=== PATIENT | male | born 1990 | race Asian ===

== ENCOUNTER → 2018-03-15 15:14 | Outpatient (CLI) | payer OTHER, SELFPAY ==
--- NOTE | 2018-03-15 15:24 | RAD_ITS ---
STUDY: X-RAY - LUMBAR SPINE REASON FOR EXAM: Male, 28 years old. Back pain TECHNIQUE: 5 view(s) of the lumbar spine were obtained. COMPARISON: None FINDINGS: There is no evidence of fracture or dislocation in the lumbar spine. The vertebral body heights and disc spaces are well-maintained. There are no significant degenerative changes. RAD/L/S Spine Min 4 Views IMPRESSION: No fracture or dislocation in the lumbar spine. Electronically Signed: Jefry Baez, at 18:13 EDT Tel , Service support ,
== END ==
PROVIDERS: Family Provider Family Medicine; PCP Family Medicine; Visit Provider Family Medicine
DX: S39.012A Strain of muscle, fascia and tendon of lower back, initial encounter (principal)
CPT/HCPCS: 72110

== ENCOUNTER → 2019-07-13 | Outpatient (CLI) | payer OTHER, SELFPAY ==
--- NOTE | 2019-07-13 10:09 | RAD_ITS ---
STUDY: X-RAY CHEST REASON FOR EXAM: Male, 29 years old. Increasing shortness of breath and chest congestion. Asthma. TECHNIQUE: PA and lateral views of the chest. COMPARISON: None. FINDINGS: Hyperinflation. The lungs are clear. There is no demonstrated pleural abnormality. Normal size heart. Normal mediastinum and maria. Normal visualized pulmonary arteries. Normal visualized aortic arch and descending thoracic aorta. Normal visualized thoracic spine. Normal visualized ribs, clavicles, and shoulders. There is no demonstrated abnormality of the visualized soft tissue structures of the upper abdomen. RAD/Chest PA and Lateral IMPRESSION: Hyperinflation. Electronically Signed: John Panda, at 15:47 EDT , Service support ,
== END | disposition home or self-care (01) ==
LOC: MTRAD 10:08
PROVIDERS: Family Provider Family Medicine; PCP Family Medicine; Referring Provider Family Medicine; Visit Provider Family Medicine
DX: J45.901 Unspecified asthma with (acute) exacerbation (principal)
CPT/HCPCS: 71046

== ENCOUNTER 2019-09-15 14:54 | Emergency (ER) | payer OTHER, SELFPAY ==
[2019-09-15 14:55] VITALS: BP 151/110; PULSE 95; RESP 16; TEMP 37.5; O2SAT 96; BMI 27.2
--- NOTE | 2019-09-15 15:22 | CT_ITS ---
STUDY: CT BRAIN WITHOUT CONTRAST REASON FOR EXAM: Male, 29 years old. FONTAINE all over/NECK PAIN/NAUSEA X 2 DAYS. Low grade fever. Pt shielded RADIATION DOSAGE (If Supplied By Facility): CTDIvol = ( 44.99 ) mGy, DLP = ( 829.85 ) mGycm TECHNIQUE: Transaxial CT imaging of the brain was performed without administration of intravenous contrast material. Individualized dose optimization techniques were used for this CT. COMPARISON: No relevant priors. FINDINGS: Normal soft tissue structures. Normal calvarium. Normal size ventricles and extra-axial spaces for the patient''s age. Normal white matter tracts of the cerebral hemispheres. Normal basal ganglia and thalami. Normal brainstem. Normal cerebellum. There is no intracranial hemorrhage. There are no findings of an acute ischemic infarction. Normal visualized paranasal sinuses. CT/Brain/Head without Contrast IMPRESSION: Normal unenhanced CT scan of the brain. Electronically Signed: Compa Hilton MD at 16:01 EST Tel , Service support ,
--- NOTE | 2019-09-15 15:23 | ED.VIS.HA ---
History of Present Illness Chief Complaint: Headache Informant: Patient Onset: Days - 3 Context: Gradual Timing: Continuous Quality: Dull Location: global Current Severity: Severe Maximum Severity: Severe Worsened by: nothing Relieved by: nothing Associated Symptoms: Fever, Nausea. Negative for: Vomiting, Sore Throat, Sinus Pressure, Numbness, Tingling, Preceding Aura, Visual Changes, Blurred Vision, Photophobia, Visual Loss Injury: - - no injury Narrative: Healthy 29-year-old male has had gradual onset of severe global headache and severe pain throughout the back of his neck. The pain is worst at the base of his head, but radiates down into his trapezius musculature. There are no neurologic symptoms. He states the pain is worse when he extends at the neck, lifting his chin up, and is not bad to bend his chin down to his chest or to turn in both directions fully. States his low back is sore but he always has soreness in his low back. Denies any peripheral neurologic symptoms, confusion, vision changes, or photophobia. He has had fevers up to 102. He has had no cold symptoms, earache, sore throat, was having a lot of nausea but no vomiting. States he had some abdominal pain a couple days ago but that went away and now his abdomen feels fine. He has had decreased oral intake. Prior similar symptoms: No Recent Illness/Hospitalization: No Past Medical History - Allergies and Home Meds Allergies/Adverse Reactions: Allergies No Known Allergies Allergy (Verified 09/15/19 14:54) Primary Care Physician: Barry Purvis MD [Primary Care Provider] - Lives: Alone Smoking Status: Never smoker Drugs: None Review of Systems General: Reports: Fever, Sweats. Denies: Chills Eyes: Denies: Visual changes - bilaterally, Diplopia ENT: Denies: Bilateral ear pain, Rhinorrhea, Sore throat Cardiovascular: Denies: Chest pain, Palpitations Respiratory: Denies: Dyspnea, Cough, Dyspnea on exertion Gastrointestinal: Reports: Nausea - And decreased appetite/oral intake. Denies: Abdominal pain, Vomiting, Diarrhea, Melena, Hematochezia Genitourinary: Denies: Dysuria, Hematuria, Frequency Musculoskeletal: Reports: Neck pain, Back pain. Denies: Swelling, Extremity Pain Skin: Denies: Rash, Wounds Neurological: Reports: Headache. Denies: Weakness, Parasthesia, Numbness Physical Exam Vital Signs/Narrative: Vital Signs Temp Pulse Resp BP Pulse Ox 09/15/19 14:55 99.5 F H 95 16 151/110 H 96 Inital Vital Signs reviewed: Yes General: Well nourished, Well developed, - - Well-appearing, lights on without photophobia, no acute distress Head: NC, AT Eyes: Perrl, EOMI ENT: Moist mucous membranes, No rhinorrhea, TM's clear - And no mastoid tenderness. Negative for: Sinus tenderness Neck: Supple, No Lymphadenopathy, Nontender - Actually, palpation throughout the posterior paraspinal musculature helps his pain, No Meningismus - Full range of motion throughout, - - Negative Kernig and Brudzinski signs Cardiovascular: Regular rate, Regular rhythm, No murmurs Respiratory: No distress, CTA bilaterally, Chest nontender Abdomen: Soft, Nontender, Nondistended, Normal bowel sounds. Negative for: Hepatomegaly, Splenomegaly Back: Nontender, Normal Inspection. Negative for: CVA tenderness, Spinal tenderness Extremities: Nontender, No edema, - - Negative straight leg raises bilaterally while sitting Skin: Normal color, No rash Neuro: Alert, Oriented x3, Cranial nerves II-XII grossly intact, Normal Strength, Normal Sensation, Normal DTR, Normal Gait Psychological: Normal affect, Normal Mood Diagnostic/Tx/Re-eval Impressions Brain CT 09/15/19 15:22 IMPRESSION: Normal unenhanced CT scan of the brain. Electronically Signed: Compa Hilton MD at 16:01 EST Tel , Service support , 09/15/19 15:22 Brain/Head without Contrast [CT] Stat Laboratory Results 09/15/19 09/15/19 15:14 15:14 WBC 3.8 L RBC 5.49 Hgb 16.5 Hct 47.4 MCV 86.3 MCH 30.1 MCHC 34.8 RDW Std Deviation 35.8 RDW Coeff of Luis Carlos 11.3 L Plt Count 155 MPV 9.5 Immature Gran % (Auto) 0.300 Neut % (Auto) 63.5 Lymph % (Auto) 23.4 Faulkner % (Auto) 12.0 H Eos % (Auto) 0.5 Baso % (Auto) 0.3 Absolute Neuts (auto) 2.4 Absolute Lymphs (auto) 0.90 Nucleated RBC % 0 Sodium 139 Potassium 3.8 Chloride 105 Carbon Dioxide 31.0 Anion Gap 3 L BUN 13 Creatinine 1.20 Estim Creat Clear Calc 93.78 Est GFR (MDRD) Af Amer 92 Est GFR (MDRD) Non-Af 76 BUN/Creatinine Ratio 10.8 Glucose 97 Calcium 8.7 - Medical Decision Making Patient has white blood count slightly below the normal range. There is a prominence of monocytes which is of undetermined significance. He has not had any travel outside of the area or country recently or exposure with malaria. CT scan was negative, there is no sign of sphenoidal sinusitis there anything else that explains his symptoms. This is reassuring. After Toradol and Reglan, he feels much better including his neck pain. I reassure him, I cannot justify doing a spinal tap at this time given the risks and benefits, as I do not think he has meningitis. Most likely a viral syndrome given the prevalence of viruses in the community at this time. We discussed reasons to return to the hospital, supportive care otherwise advised and follow-up if persistent. He is comfortable with that plan. ED Disposition - Plan for ED Patient: Disposition: Home or Assisted Living Diagnosis: Cephalgia, Viral syndrome Instructions: HEADACHE, Unspecified, VIRAL SYNDROME (Adult) Referrals: Barry Purvis MD [Primary Care Provider] - 3-5 Days if not improving
[2019-09-15 15:25] VITALS: BP 169/97
[2019-09-15 15:30] LABS: Absolute Neutrophil Count 2.4 X10^3/uL (2.0-7.7); Basophil# 0.01 X10^3/uL; Basophil% 0.3 % (0-1); Eosinophil# 0.02 X10^3/uL; Eosinophils% 0.5 % (0-5); Hematocrit 47.4 % (40-54); Hemoglobin 16.5 g/dL (13.0-16.5); Lymphocyte % 23.4 % (19-41); Mean Corp Hgb Conc 34.8 g/dL (32-36); Mean Corpuscular Hgb 30.1 pg (27.0-32.0); Mean Corpuscular Volume 86.3 fL (80-94); Mean Platelet Vol. 9.5 fl (6.2-12.0); Monocyte# 0.46 X10^3/uL; NRBC Flagged by Analyzer 0 % (0-5); Neutrophil # 2.44 X10^3/uL (2.7-7.7); Neutrophil % 63.5 % (47-70); Platelet Count 155 K/mm3 (150-450); RBC Distribution Width CV 11.3 % (11.6-14.6); RBC Distribution Width SD 35.8 fl (35.1-43.9); Red Blood Count 5.49 M/mm3 (4.6-6.2); White Blood Count 3.8 K/mm3 (4.4-11.0)
[2019-09-15] MEDS: Ketorolac 30 MG/ML Syringe IV (15:33)
[2019-09-15] MEDS: Metoclopramide 10 MG/2 ML Vial IV (15:33)
[2019-09-15 15:45] LABS: BUN 13 mg/dL (7-18); BUN/Creat Ratio 10.8 RATIO (10-20); Calcium,Total 8.7 mg/dL (8.5-10.1); Chloride 105 mmol/L (98-107); EST Glomerular Filtration Rate 76 mL/min (>60); Est Glom Filt Rate - Afr Amer 92 mL/min (>60); Estimated Creatinine Clearance 93.78 ml/min; Glucose 97 mg/dL (74-106); Potassium 3.8 mmol/L (3.5-5.1); Sodium Level 139 mmol/L (136-145)
[2019-09-15 15:46] LABS: Anion Gap 3 (5-15)
[2019-09-15 16:20] VITALS: BP 142/89; RESP 16
--- NOTE | 2019-09-15 16:22 | ED.RN ---
REVIEWED D/C INSTRUCTIONS, FOLLOW UP CARE, AND S/S THAT WOULD WARRANT A RETURN TO THE ED WITH PT. PT VERBALIZED AN UNDERSTANDING AND DENIES FURTHER QUESTIONS FOR THIS RN. PT SKIN WARM/DRY, RESP EVEN AND UNLABORED, PT A&O X 3, NO DISTRESS NOTED. PT AMBULATED OUT OF ED, GAIT STEADY.
== END 2019-09-15 16:23 | disposition home or self-care (01) ==
PROVIDERS: Emergency Provider Emergency Medicine; Family Provider Family Medicine; PCP Family Medicine
DX: R51 Headache (principal); B34.9 Viral infection, unspecified; R50.9 Fever, unspecified; R11.0 Nausea; M54.2 Cervicalgia; M54.5 Low back pain
CPT/HCPCS: 70450; 80048; 85025; 96361; 96374; 96375; 99283; J7030; A4216

== ENCOUNTER → 2022-03-04 | Outpatient (CLI) | payer OTHER, SELFPAY ==
[2022-03-04 13:23] LABS: Alanine Aminotransfer ALT/SGPT 23 U/L (16-61); Cholesterol 138 mg/dL (200); Creatinine, Serum 1.01 mg/dL (0.70-1.30); EST Glomerular Filtration Rate 91 mL/min (>60); Est Glom Filt Rate - Afr Amer 110 mL/min (>60); Glucose 88 mg/dL (74-106); High Density Lipoprotein 60 mg/dL; Triglycerides 46 mg/dL; Very Low Density Lipoprotein 9 mg/dL (5-40)
[2022-03-04 13:54] LABS: Hepatitis C Antibody Non-Reactive (Nonreactive)
== END | disposition home or self-care (01) ==
LOC: MFPLAB 10:36
PROVIDERS: PCP Family Medicine; Referring Provider Family Medicine; Visit Provider Family Medicine
DX: Z00.00 Encounter for general adult medical examination without abnormal findings (principal); Z11.59 Encounter for screening for other viral diseases
CPT/HCPCS: 36415; 80061; 82565; 82947; 84460; 86803